=== PATIENT | female | born 1980 | race Caucasian/White ===

== ENCOUNTER 2024-05-24 12:02 | Emergency (ER) | payer MEDICAID, OTHER ==
[~2024-05-24] VITALS: Ht 165.1 cm; Wt 75.0 kg
[2024-05-24 13:08] VITALS: BP 128/90; PULSE 98; RESP 17; TEMP 98.5; O2SAT 98
[2024-05-24] MEDS ORDERED: AZIT-185 PO (13:32)
[2024-05-24] MEDS ORDERED: IBUP-1454 PO (13:32)
== END 2024-05-24 13:47 | disposition home or self-care (01) ==
LOC: ER 12:02
DX: J03.90 Acute tonsillitis, unspecified (principal); Z79.1 Long term (current) use of non-steroidal anti-inflammatories (NSAID)